=== PATIENT | male | born 1940 | race Caucasian/White ===

== ENCOUNTER 2016-06-16 09:01 | Day surgery (SDC) | END 2016-06-16 09:02 | disposition home or self-care (01) | CPT/HCPCS: 45380; J7120 ==

== ENCOUNTER 2016-06-24 08:59 | Outpatient (CLI) | payer MEDICARE, OTHER | END 2016-06-24 09:00 | disposition home or self-care (01) | DX: Z00.00 Encounter for general adult medical examination without abnormal findings (principal); E78.5 Hyperlipidemia, unspecified; J30.9 Allergic rhinitis, unspecified; J45.909 Unspecified asthma, uncomplicated; K22.70 Barrett's esophagus without dysplasia; K21.9 Gastro-esophageal reflux disease without esophagitis; Z85.828 Personal history of other malignant neoplasm of skin; I10 Essential (primary) hypertension ==

== ENCOUNTER 2017-10-31 12:21 | Outpatient (CLI) | payer MEDICARE, OTHER ==
[2017-10-31 18:06] LABS: CHOL/HDL RATIO 4.1 (<5.0); CHOLESTEROL 275 mg/dL; HDL CHOLESTEROL 67 mg/dL; LDL CHOLESTEROL,CALCULATED 183 mg/dL; LDL/HDL RATIO 2.7 (<3.6); VLDL CHOLESTEROL 25 mg/dL
== END 2017-10-31 12:22 | disposition home or self-care (01) ==
LOC: LAB.F 12:21
PROVIDERS: ATTEND Internal Medicine
DX: Z00.00 Encounter for general adult medical examination without abnormal findings (principal); E78.5 Hyperlipidemia, unspecified; I10 Essential (primary) hypertension; Z85.828 Personal history of other malignant neoplasm of skin; M25.552 Pain in left hip; K21.9 Gastro-esophageal reflux disease without esophagitis; F32.9 Major depressive disorder, single episode, unspecified; K22.70 Barrett's esophagus without dysplasia; J45.909 Unspecified asthma, uncomplicated
CPT/HCPCS: 36415; 80061; 83721

== ENCOUNTER 2018-01-05 10:04 | Outpatient (CLI) | payer MEDICARE, OTHER ==
[2018-01-05 18:10] LABS: CHOL/HDL RATIO 2.6 (<5.0); CHOLESTEROL 216 mg/dL; HDL CHOLESTEROL 82 mg/dL; LDL CHOLESTEROL,CALCULATED 121 mg/dL; LDL/HDL RATIO 1.5 (<3.6); VLDL CHOLESTEROL 13 mg/dL
== END 2018-01-05 10:05 | disposition home or self-care (01) ==
LOC: LAB.F 10:04
PROVIDERS: ATTEND Internal Medicine
DX: J30.9 Allergic rhinitis, unspecified (principal); J45.909 Unspecified asthma, uncomplicated; K22.70 Barrett's esophagus without dysplasia; F32.9 Major depressive disorder, single episode, unspecified; K21.9 Gastro-esophageal reflux disease without esophagitis; Z85.828 Personal history of other malignant neoplasm of skin; E78.5 Hyperlipidemia, unspecified; I10 Essential (primary) hypertension
CPT/HCPCS: 36415; 80061; 83721

== ENCOUNTER 2018-09-25 09:58 | Emergency (ER) | payer MEDICARE, OTHER ==
--- NOTE | 2018-09-25 10:32 | ED Physician Documentation ---
PD HPI TRUNK INJURY - Stated complaint Stated Complaint: LEFT SIDE PX - Chief complaint Chief Complaint: Trauma Abd - History obtained from History obtained from: Patient - History of Present Illness Location: Left chest Type of injury: Fall Timing - onset: How many days ago (10) Timing - duration: Days (10) Timing - details: Abrupt onset, Still present Quality: Pain, Sharp Improved by: Rest Worsened by: Moving, Palpating Associated symtptoms: Discoloration. No: Weakness, Numbness, Tingling, Swelling Contributing factors: No: Anticoagulated Where injury occured: Home Similar symptoms before: Diagnosis (rib contusion) Recently seen: Not recently seen - Additional information Additional information: 10 days ago this 78-year-old male was in his garage synchronizing his garage doorperson on a ladder and he was up about 2 feet on the ladder and he went to step down missed a step and fell landing against a small cabinet. He bruised the left side of his chest wall and has significant ecchymosis with that. He states that he felt that he did well initially and it was not until about 3 days ago that he started developing a pain in his left side that seem to come on after he moved a certain way. He has had pain persistent there now and especially if he takes a deep breath or moves. He has not had a cough or fever he has not had shortness of breath he has been doing deep breathing. He denies feeling ill denies any vomiting or difficulty with food denies any faintness. Review of Systems Constitutional: denies: Fever Eyes: denies: Decreased vision Ears: denies: Ear pain Nose: denies: Congestion Throat: denies: Sore throat Cardiac: reports: Chest pain / pressure. denies: Palpitations, Pedal edema, Calf pain Respiratory: denies: Dyspnea, Cough GI: denies: Abdominal Pain, Nausea, Vomiting : denies: Dysuria, Frequency PD PAST MEDICAL HISTORY - Past Medical History Past Medical History: Yes Cardiovascular: None, Hypertension, High cholesterol Respiratory: Other Endocrine/Autoimmune: None GI: None : None HEENT: Chronic sinusitis Psych: None Musculoskeletal: None Derm: None - Past Surgical History Past Surgical History: Yes Ortho: Arthroscopic surgery HEENT: Tonsil/Adenoidectomy, Other - Present Medications Home Medications: Ambulatory Orders Medication Instructions Recorded Confirmed Amlodipine Besylate 2.5 mg PO ONCE 06/16/16 06/16/16 Atorvastatin [Lipitor] 10 mg PO ONCE 06/16/16 06/16/16 Cetirizine [ZyrTEC] 10 mg PO ONCE 06/16/16 06/16/16 Famotidine [Pepcid] 20 mg PO ONCE 06/16/16 06/16/16 Hydrocodone/Acetaminophen 1 - 2 each PO Q6H PRN #14 tablet 09/25/18 [Hydrocodon-Acetaminophen 5-325] - Allergies Allergies/Adverse Reactions: Allergies Allergy/AdvReac Type Severity Reaction Status Date / Time amoxicillin trihydrate * Allergy Mild Nausea Verified 09/25/18 10:13 [From Augmentin] potassium clavulanate * Allergy Mild Nausea Verified 09/25/18 10:13 [From Augmentin] - Social History Does the pt smoke?: No Smoking Status: Never smoker Does the pt drink ETOH?: Yes Does the pt have substance abuse?: No - Immunizations Immunizations are current?: Yes - POLST Patient has POLST: No PD ED PE NORMAL - Vitals Vital signs reviewed: Yes (hypertensive ) - General General: Alert and oriented X 3, No acute distress, Well developed/nourished - HEENT HEENT: Atraumatic, PERRL, EOMI - Neck Neck: Supple, no meningeal sign, No bony TTP - Cardiac Cardiac: RRR, No murmur - Respiratory Respiratory: No respiratory distress, Clear bilaterally, Other (There is ecchymosis to the lateral chest wall on the left side lower. There is specific point tenderness to the chest wall over the lateral lower ribs. ) - Abdomen Abdomen: Soft, Non tender - Back Back: No CVA TTP, No spinal TTP - Derm Derm: Normal color, Warm and dry, No rash - Extremities Extremities: No deformity, No edema - Neuro Neuro: Alert and oriented X 3, tobacco acreage measurer 2-12 intact, No motor deficit, No sensory deficit, Normal speech Eye Opening: Spontaneous Motor: Obeys Commands Verbal: Oriented GCS Score: 15 - Psych Psych: Normal mood, Normal affect Results - Vitals Vitals: Vital Signs - 24 hr 09/25/18 10:07 Temperature 36.7 C Heart Rate 74 Respiratory 16 Rate Blood Pressure 152/76 H O2 Saturation 97 Oxygen O2 Source Room air - Rads (name of study) ribs with PA chest Radiology: Prelim report reviewed (Impression: 1. Nondisplaced anterior distal left seventh and ninth rib fractures and possible nondisplaced eighth rib fracture. 2. Possible minimal left pleural effusion.), EMP read indepedently, See rad report Procedures - FAST exam (time) 1025 FAST exam: No: Free fluid RUQ, Free fluid LUQ, Free fluid suprapubic, Pericardial effusion PD MEDICAL DECISION MAKING - ED course Complexity details: reviewed old records, reviewed results, re-evaluated patient, considered differential, d/w patient ED course: 78-year-old male with a left chest wall contusion has ecchymosis and specific point tenderness he does not have any evidence of intra-abdominal fluid and his spleen appears homogeneous. He is administered dexamethasone and rib films are obtained. Rib fractures are non-displaced patient is tolerating this well. Departure - Departure Disposition: 01 Home, Self Care Clinical Impression: Rib fractures Qualifiers: Encounter type: initial encounter Rib fracture type: multiple ribs Fracture type: closed Laterality: left Qualified Code(s): S22.42XA - Multiple fractures of ribs, left side, initial encounter for closed fracture Condition: Stable Instructions: ED Fx Rib Follow-Up: Michael Jain MD [Primary Care Provider] - Prescriptions: Hydrocodone/Acetaminophen [Hydrocodon-Acetaminophen 5-325] 1 - 2 each PO Q6H PRN #14 tablet PRN Reason: pain
[2018-09-25] MEDS ORDERED: CHERRY SYRUP 10 ML UDC PO ONE (10:35)
[2018-09-25] MEDS ORDERED: DEXAMETHASONE 10 MG/ML VIAL PO STA (10:35)
--- NOTE | 2018-09-25 10:58 | XRAY Report ---
Reason: fall from ladder left lower pain Procedure Date: 09/25/2018 Accession Number: [id number] / [id number] Procedure: XR - Ribs w/PA Chest LT CPT Code: FULL RESULT: EXAM: LEFT RIB RADIOGRAPHY EXAM DATE: 09/25/2018 10:45 AM. CLINICAL HISTORY: Fall from ladder left lower pain. COMPARISON: None. TECHNIQUE: 1 view of the chest and 2 views of the ribs. FINDINGS: Bones: Nondisplaced distal/anterior left seventh and ninth rib fractures. Possible nondisplaced distal/anterior left eighth rib fracture. Lungs: No focal opacities. No pneumothorax. Possible minimal left pleural effusion. Mediastinum: Heart and mediastinal contours are unremarkable. Other: None. IMPRESSION: 1. Nondisplaced anterior/distal left seventh and ninth rib fractures and possible nondisplaced eighth rib fracture. 2. Possible minimal left pleural effusion. [facility]
[2018-09-25 11:25] VITALS: BP 148/74
== END 2018-09-25 11:25 | disposition home or self-care (01) ==
LOC: ED 09:58
DX: S22.42XA Multiple fractures of ribs, left side, initial encounter for closed fracture (principal); W11.XXXA Fall on and from ladder, initial encounter; Y93.H3 Activity, building and construction; Y92.008 Other place in unspecified non-institutional (private) residence as the place of occurrence of the external cause; I10 Essential (primary) hypertension
CPT/HCPCS: 99283; 99284

== ENCOUNTER 2019-08-06 07:08 | Outpatient (CLI) | payer MEDICARE, OTHER ==
[2019-08-06 10:14] LABS: BASOPHILS # (AUTO) 0.1 10^3/uL (0.0-0.1); BASOPHILS % (AUTO) 0.8 %; EOSINOPHILS # (AUTO) 0.4 10^3/uL (0.0-0.7); EOSINOPHILS % (AUTO) 5.9 %; HGB - HEMOGLOBIN 14.4 g/dL (14.0-18.0); LYMPHOCYTES # (AUTO) 2.2 10^3/uL (1.5-3.5); LYMPHOCYTES % (AUTO) 33.4 %; MEAN CORPUSCULAR HEMOGLOBIN 27.7 pg (27.0-31.0); MEAN CORPUSCULAR HGB CONC 31.6 g/dL (32.0-36.0); MEAN CORPUSCULAR VOLUME 87.7 fL (80.0-94.0); MEAN PLATELET VOLUME 9.5 fL (7.4-11.4); MONOCYTES # (AUTO) 0.7 10^3/uL (0.0-1.0); MONOCYTES % (AUTO) 10.7 %; NEUTROPHILS # (AUTO) 3.2 10^3/uL (1.5-6.6); NEUTROPHILS % (AUTO) 48.7 %; PLT - PLATELET COUNT 300 10^3/uL (130-450); RED CELL DISTRIBUTION WIDTH 13.5 % (12.0-15.0); WHITE BLOOD COUNT 6.6 x10^3/uL (4.8-10.8)
[2019-08-06 10:51] LABS: ALBUMIN 4.1 g/dL (3.2-5.5); ALBUMIN/GLOBULIN RATIO 1.4 (1.0-2.2); ALKALINE PHOSPHATASE 33 IU/L (42-121); ALT ALANINE AMINOTRANSFERASE 36 IU/L (10-60); AST ASPARTATE AMINOTRANSFERASE 34 IU/L (10-42); BILIRUBIN,TOTAL 1.1 mg/dL (0.2-1.0); BUN - BLOOD UREA NITROGEN 20 mg/dL (6-20); CALCIUM 9.4 mg/dL (8.5-10.3); CARBON DIOXIDE - CO2 25 mmol/L (21-32); CHLORIDE 105 mmol/L (101-111); CHOL/HDL RATIO 2.9 (<5.0); CHOLESTEROL 191 mg/dL; GFR - MDRD 72 (>89); GLUCOSE 78 mg/dL (70-100); HDL CHOLESTEROL 67 mg/dL; LDL CHOLESTEROL,CALCULATED 113 mg/dL; LDL/HDL RATIO 1.7 (<3.6); SODIUM 137 mmol/L (135-145); VLDL CHOLESTEROL 11 mg/dL
[2019-08-06 11:01] LABS: THYROID STIMULATING HORMONE 3.58 uIU/mL (0.34-5.60)
[2019-08-06 11:03] LABS: FREE T4 (FREE THYROXINE) 0.89 ng/dL (0.58-1.64)
== END 2019-08-06 07:09 | disposition home or self-care (01) ==
LOC: LAB.S 07:08
PROVIDERS: ATTEND Nurse Practitioner Family
DX: Z13.0 Encounter for screening for diseases of the blood and blood-forming organs and certain disorders involving the immune mechanism (principal); Z13.220 Encounter for screening for lipoid disorders; F32.1 Major depressive disorder, single episode, moderate; Z13.6 Encounter for screening for cardiovascular disorders
CPT/HCPCS: 36415; 80053; 80061; 83721; 84439; 84443; 85025

== ENCOUNTER 2021-04-03 08:00 | Outpatient (CLI) | payer MEDICARE, OTHER | END 2021-04-03 23:59 | disposition home or self-care (01) | LOC: LAB.S 08:00 | PROVIDERS: ATTEND Emergency Medicine | DX: M70.22 Olecranon bursitis, left elbow (principal) | CPT/HCPCS: 87070; 87205 ==